=== PATIENT | female | born 2000 | race Caucasian/White ===

== ENCOUNTER 2025-08-27 12:31 | Emergency (ER) | payer SELFPAY ==
[2025-08-27 13:52] LABS: Platelet Count 198 10x3/uL (150-450)
[2025-08-27 13:53] LABS: #Basophils Less than 0.03 10x3/uL (0.0-0.2); #Eosinophils 0.03 10x3/uL (0.0-0.5); #Monocytes 0.48 10x3/uL (0.0-1.1); #Neutrophils 4.58 10x3/uL (1.5-8.4); %Basophils 0.3 % (0.0-2.0); %Eosinophils 0.5 % (0.0-6.0); %Lymphocytes 20.6 % (18.0-47.0); %Monocytes 7.4 % (0.0-10.0); %Neutrophils 71.0 % (40.0-75.0); Hematocrit 34.6 % (34.9-44.5); Hemoglobin 10.6 g/dL (12.0-15.5); Mean Corpuscular Hemoglobin 19.2 pg (27.0-33.0); Mean Corpuscular Volume 62.8 fL (81.6-98.3); Red Blood Cell (RBC) Count 5.51 10x6/uL (3.90-5.03); White Blood Cell (WBC) Count 6.45 10x3/uL (3.5-10.5)
[2025-08-27 14:09] LABS: ALT (SGPT) 10 U/L (Less than 34); AST (SGOT) 21 U/L (11-34); Albumin 4.9 g/dL (3.1-4.5); Alkaline Phosphatase 36 U/L (40-110); Anion Gap 14 mmol/L (10-20); BUN (Urea Nitrogen) 8 mg/dL (7.0-18.7); Bilirubin, Total 0.9 mg/dL (0.3-1.2); Calc. Creatinine Clearance 0 mL/min (70-130); Calcium 9.7 mg/dL (7.8-10.44); Carbon Dioxide 24 mmol/L (22-29); Chloride 103 mmol/L (98-107); Globulin 3.1 g/dL (2.4-3.5); Glucose 81 mg/dL (70-105); Potassium 3.5 mmol/L (3.5-5.1); Sodium 137 mmol/L (136-145)
[2025-08-27 14:18] LABS: Glucose, Urine (Dipstick) Normal (Negative); Leukocyte 25 (Negative); Protein, Urine (Dipstick) 15 mg/dl (Neg-Trace); Specific Gravity, Urine 1.020 (1.005-1.030)
[2025-08-27 14:51] LABS: Bacteria/HPF 2+ HPF (None Seen); CAUTI Indications for Culture Pregnancy; RBC/HPF 0-3 HPF (0-3)
[2025-08-27 14:52] LABS: Urine Culture Reflex Yes Yes
[2025-08-27 15:06] LABS: Troponin I Less than 0.010 ng/mL (< 0.028)
[2025-08-27 15:52] LABS: MDiff Complete? YES
[2025-08-27 16:02] LABS: Anisocytosis SLIGHT = 6-15 cells (100X) (0-5/hpf); Microcytosis MARKED = >30 cells (100X) (0-5/hpf); Platelet Adequacy Comment Appears Adequate
[2025-08-27 16:03] LABS: Reflex for Review?? YES
== END 2025-08-27 18:15 | disposition home or self-care (01) ==
LOC: CSHERS 12:31
DX: O99.611 Diseases of the digestive system complicating pregnancy, first trimester (principal); R10.30 Lower abdominal pain, unspecified; O99.891 Other specified diseases and conditions complicating pregnancy; M25.511 Pain in right shoulder; O20.8 Other hemorrhage in early pregnancy; O23.41 Unspecified infection of urinary tract in pregnancy, first trimester; N39.0 Urinary tract infection, site not specified; Z3A.01 Less than 8 weeks gestation of pregnancy; Z87.891 Personal history of nicotine dependence
CPT/HCPCS: 36415; 76856; 80053; 81001; 83880; 84484; 84702; 85025; 85060; 86900; 86901; 87086; 87428; 93005